=== PATIENT | female | born 1965 | race Hispanic/Latino ===

== ENCOUNTER → 2019-03-27 | Outpatient (CLI) | payer OTHER | END | disposition home or self-care (01) | LOC: RAH 11:12 | PROVIDERS: ATTEND Obstetrics & Gynecology | DX: Z12.31 Encounter for screening mammogram for malignant neoplasm of breast (principal) | CPT/HCPCS: 77067 ==

== ENCOUNTER → 2019-04-03 | Outpatient (CLI) | payer OTHER | END | disposition home or self-care (01) | LOC: RAH 09:01 | PROVIDERS: ATTEND Obstetrics & Gynecology | DX: N63.32 Unspecified lump in axillary tail of the left breast (principal); N63.31 Unspecified lump in axillary tail of the right breast; N60.02 Solitary cyst of left breast; N60.01 Solitary cyst of right breast | CPT/HCPCS: 76641 ==

== ENCOUNTER 2023-12-05 14:19 | Emergency (ER) | payer BC ==
[~2023-12-05] VITALS: Ht 152.4 cm; Wt 68.0 kg
[~2023-12-05 14:19] MED LIST: GLIP10TA9 PO; METF-526 PO
[2023-12-05 14:49] LABS: HEMATOCRIT 30.1 % (36-48); MEAN CORPUSCULAR HEMOGLOBIN 29.9 pg (27.0-33.0); MEAN CORPUSCULAR HGB CONC 33.2 g/dL (32.0-36.0); MEAN CORPUSCULAR VOLUME 90.1 fL (79-99); RED BLOOD CELL COUNT(AUTO) 3.34 MIL/uL (4.00-5.50); RED CELL DISTRIBUTION WIDTH 13.9 % (11.0-15.5); WHITE BLOOD COUNT (AUTO) 5.6 K/uL (4.8-10.8)
[2023-12-05 15:06] LABS: CREATININE 0.8 mg/dL (0.5-1.5); POTASSIUM 3.6 mmol/L (3.5-5.1)
[2023-12-05] MEDS: PANTOPRAZOLE 40 MG/VIAL IVP ONE (18:41)
[2023-12-05] MEDS: 0.9% NACL 500ML IV.SOLN 500 ML IV ONE (18:42)
[2023-12-05 19:12] LABS: MAGNESIUM 1.7 mg/dL (1.80-2.40)
[2023-12-05 20:17] LABS: APPEARANCE,URINE CLEAR (CLEAR); BILIRUBIN,URINE NEGATIVE (NEGATIVE); COLOR,URINE LIGHT-YELLOW (YELLOW); GLUCOSE, URINE (UA) 300 mg/dL (NEGATIVE); KETONES,URINE NEGATIVE (NEGATIVE); LEUKOCYTE ESTERASE ,URINE NEGATIVE Leu/uL (NEGATIVE); NITRATE,URINE NEGATIVE (NEGATIVE); OCCULT BLOOD,URINE NEGATIVE (NEGATIVE); PH,URINE 6.5 (5.0-8.0); PROTEIN,URINE NEGATIVE (NEGATIVE); UROBILINOGEN,URINE 0.2 mg/dL (0.2-1.0)
[2023-12-05 20:18] LABS: ADD UA MICROSCOPIC YES
[2023-12-05 20:20] LABS: BACTERIA,URINE RARE /HPF (None Seen); MUCUS,URINE RARE LPF (None Seen); RBC,URINE 0-1 /HPF (0-1); SQUAMOUS EPITHELIAL CELL,UR RARE /HPF (0-2); UNCLASSIFIED CRYSTAL 1 /HPF (None Seen); WBC,URINE 0-1 /HPF (0-1)
[2023-12-05] MEDS: 0.9%NACL 1000ML 1,365 ML IV ONE (20:50)
[2023-12-05] MEDS ORDERED: ONDA4TAB10 PO (23:09)
[2023-12-05] MEDS ORDERED: GLIP5TAB PO (23:25)
[2023-12-05 23:31] VITALS: BP 139/64; PULSE 76; RESP 16; O2SAT 98
== END 2023-12-05 23:38 | disposition home or self-care (01) ==
LOC: EDH 14:19
DX: E11.65 Type 2 diabetes mellitus with hyperglycemia (principal); R11.0 Nausea; E87.20 Acidosis, unspecified; I10 Essential (primary) hypertension; Z79.84 Long term (current) use of oral hypoglycemic drugs
CPT/HCPCS: 99284; 96361; 96374; 82550; 83735; 84484; 80048; 85027; 82948; 83605 ×2; 81001; 36415; 93005; J7030; C9113

== ENCOUNTER 2024-06-03 16:59 | Emergency (ER) | payer BC ==
[~2024-06-03] VITALS: Ht 152.4 cm; Wt 65.3 kg
[~2024-06-03 16:59] MED LIST changes: +GLIP5TAB PO; +ONDA-243 PO
[2024-06-03 17:20] LABS: BASOPHILS # (AUTO) 0.03 K/uL (0.00-0.20); BASOPHILS % (AUTO) 0.6 % (0.0-5.0); EOSINOPHILS # (AUTO) 0.02 K/uL (0.00-0.70); EOSINOPHILS % (AUTO) 0.4 % (0.0-8.0); HEMATOCRIT 35.9 % (36-48); IMMATURE GRANULOCYTE ABSOLUTE 0.01 K/uL (0-1); LYMPHOCYTES # (AUTO) 1.9 K/uL (1.0-4.8); LYMPHOCYTES % (AUTO) 39.6 % (21.0-51.0); MEAN CORPUSCULAR HEMOGLOBIN 32.5 pg (27.0-33.0); MEAN CORPUSCULAR HGB CONC 33.7 g/dL (32.0-36.0); MEAN CORPUSCULAR VOLUME 96.5 fL (79-99); MONOCYTES # (AUTO) 0.4 K/uL (0.1-1.0); MONOCYTES % (AUTO) 7.9 % (3.0-13.0); NEUTROPHILS # (AUTO) 2.5 K/uL (1.8-7.7); NEUTROPHILS % (AUTO) 51.3 % (40.0-77.0); PLATELET COUNT (AUTO) 102 K/uL (130-400); RED BLOOD CELL COUNT(AUTO) 3.72 MIL/uL (4.00-5.50); RED CELL DISTRIBUTION WIDTH 12.8 % (11.0-15.5); WHITE BLOOD COUNT (AUTO) 4.8 K/uL (4.8-10.8)
[2024-06-03 17:30] LABS: CREATININE 0.8 mg/dL (0.5-1.0); POTASSIUM 3.9 mmol/L (3.5-5.1)
[2024-06-03 17:31] LABS: INR 1.06 (0.85-1.15); PROTHROMBIN TIME 11.4 SEC (9.6-11.6)
[2024-06-03 17:32] LABS: PARTIAL THROMBOPLASTIN TIME 25.1 SEC (26.3-35.5)
[2024-06-03 17:55] LABS: B-TYPE NATRIURETIC PEPTIDE 16 pg/mL (0-100)
[2024-06-03] MEDS: 0.9%NACL 1000ML 1,000 ML IV ONE (18:25)
[2024-06-03 18:50] VITALS: BP 154/63; PULSE 78; RESP 20; O2SAT 99
[2024-06-03 18:50] LABS: ADD UA MICROSCOPIC YES; APPEARANCE,URINE CLEAR (CLEAR); BILIRUBIN,URINE NEGATIVE (NEGATIVE); COLOR,URINE LIGHT-YELLOW (YELLOW); GLUCOSE, URINE (UA) >=1000 mg/dL (NEGATIVE); KETONES,URINE NEGATIVE (NEGATIVE); LEUKOCYTE ESTERASE ,URINE NEGATIVE Leu/uL (NEGATIVE); NITRATE,URINE NEGATIVE (NEGATIVE); OCCULT BLOOD,URINE NEGATIVE (NEGATIVE); PROTEIN,URINE NEGATIVE (NEGATIVE); UROBILINOGEN,URINE 0.2 mg/dL (0.2-1.0)
[2024-06-03 18:51] LABS: RBC,URINE 0-1 /HPF (0-1); SQUAMOUS EPITHELIAL CELL,UR FEW /HPF (0-2)
== END 2024-06-03 19:55 | disposition admitted as inpatient to this hospital (09) ==
LOC: EDH 16:59
DX: R07.89 Other chest pain (principal); E11.65 Type 2 diabetes mellitus with hyperglycemia; I10 Essential (primary) hypertension; K74.60 Unspecified cirrhosis of liver; Z79.84 Long term (current) use of oral hypoglycemic drugs; Z79.899 Other long term (current) drug therapy
CPT/HCPCS: 99284; 71045; 82550; 84484 ×2; 80048; 83880; 85025; 85610; 85730; 81001; 36415; 93005; J7030

== ENCOUNTER 2024-06-27 11:31 | Emergency (ER) | payer BC ==
[~2024-06-27] VITALS: Ht 152.4 cm; Wt 65.3 kg
[2024-06-27 13:28] LABS: BASOPHILS # (AUTO) 0.03 K/uL (0.00-0.20); BASOPHILS % (AUTO) 0.6 % (0.0-5.0); EOSINOPHILS # (AUTO) 0.02 K/uL (0.00-0.70); EOSINOPHILS % (AUTO) 0.4 % (0.0-8.0); HEMATOCRIT 38.3 % (36-48); IMMATURE GRANULOCYTE ABSOLUTE 0.01 K/uL (0-1); LYMPHOCYTES # (AUTO) 2.1 K/uL (1.0-4.8); LYMPHOCYTES % (AUTO) 39.1 % (21.0-51.0); MEAN CORPUSCULAR HEMOGLOBIN 32.3 pg (27.0-33.0); MEAN CORPUSCULAR HGB CONC 33.9 g/dL (32.0-36.0); MONOCYTES # (AUTO) 0.4 K/uL (0.1-1.0); MONOCYTES % (AUTO) 7.6 % (3.0-13.0); NEUTROPHILS # (AUTO) 2.8 K/uL (1.8-7.7); NEUTROPHILS % (AUTO) 52.1 % (40.0-77.0); PLATELET COUNT (AUTO) 102 K/uL (130-400); RED BLOOD CELL COUNT(AUTO) 4.03 MIL/uL (4.00-5.50); WHITE BLOOD COUNT (AUTO) 5.4 K/uL (4.8-10.8)
[2024-06-27 13:34] LABS: CREATININE 0.7 mg/dL (0.5-1.0)
[2024-06-27 13:41] VITALS: BP 154/75; PULSE 81; RESP 16; TEMP 98; O2SAT 98
== END 2024-06-27 16:01 | disposition home or self-care (01) ==
LOC: EDH 11:31
DX: R00.2 Palpitations (principal); T45.2X5A Adverse effect of vitamins, initial encounter; E11.65 Type 2 diabetes mellitus with hyperglycemia; E87.1 Hypo-osmolality and hyponatremia; K74.60 Unspecified cirrhosis of liver; Z79.84 Long term (current) use of oral hypoglycemic drugs; Z79.899 Other long term (current) drug therapy; Y92.89 Other specified places as the place of occurrence of the external cause
CPT/HCPCS: 36415; 80048; 84484; 85025; 93005

== ENCOUNTER 2025-01-25 14:16 | Emergency (ER) | payer BC ==
[~2025-01-25] VITALS: Ht 152.4 cm; Wt 70.3 kg
[~2025-01-25 14:16] MED LIST changes: +GLIP10TA16 PO; -GLIP10TA9 PO
--- NOTE | 2025-01-25 14:31 | EKG ---
[facility] Test Date: 2025-01-25 Test Time: 14:22:24 Pat Name: JESSICA PARRA Department: ED Room: Gender: F Engineering Specialist: [id number] : 1965 Requested By: DONY FLOWERS Order Number: [id number] Reading MD: Analia Olguin Measurements Intervals [place] Rate: 88 P: 52 ID: [id number] QRS: -9 QRSD: 78 T: 86 QT: 400 QTc: 484 Interpretive Statements Sinus rhythm Compared to ECG 06/27/2024 11:47:38 T-wave abnormality no longer present Electronically Signed On 01-26-2025 09:33:49 CDT by Analia Olguin Please click the below link to view image of tracing.
[2025-01-25 15:12] LABS: BASOPHILS # (AUTO) 0.03 K/uL (0.00-0.20); BASOPHILS % (AUTO) 0.7 % (0.0-5.0); EOSINOPHILS # (AUTO) 0.02 K/uL (0.00-0.70); EOSINOPHILS % (AUTO) 0.5 % (0.0-8.0); HEMATOCRIT 38.1 % (36-48); IMMATURE GRANULOCYTE ABSOLUTE 0.01 K/uL (0-1); LYMPHOCYTES # (AUTO) 1.6 K/uL (1.0-4.8); LYMPHOCYTES % (AUTO) 36.4 % (21.0-51.0); MEAN CORPUSCULAR HEMOGLOBIN 32.9 pg (27.0-33.0); MEAN CORPUSCULAR HGB CONC 33.9 g/dL (32.0-36.0); MEAN CORPUSCULAR VOLUME 97.2 fL (79-99); MONOCYTES # (AUTO) 0.3 K/uL (0.1-1.0); NEUTROPHILS # (AUTO) 2.4 K/uL (1.8-7.7); NEUTROPHILS % (AUTO) 55.2 % (40.0-77.0); PLATELET COUNT (AUTO) 90 K/uL (130-400); RED BLOOD CELL COUNT(AUTO) 3.92 MIL/uL (4.00-5.50); RED CELL DISTRIBUTION WIDTH 13.2 % (11.0-15.5); WHITE BLOOD COUNT (AUTO) 4.4 K/uL (4.8-10.8)
[2025-01-25] MEDS: ASPIRIN 81MG CHEW TAB PO STA (15:22)
[2025-01-25 15:24] LABS: CREATININE 0.7 mg/dL (0.5-1.0)
[2025-01-25 15:33] LABS: B-TYPE NATRIURETIC PEPTIDE 15 pg/mL (0-100)
[2025-01-25 15:36] LABS: APPEARANCE,URINE CLEAR (CLEAR); BILIRUBIN,URINE NEGATIVE (NEGATIVE); COLOR,URINE LIGHT-YELLOW (YELLOW); GLUCOSE, URINE (UA) >=1000 mg/dL (NEGATIVE); KETONES,URINE NEGATIVE (NEGATIVE); LEUKOCYTE ESTERASE ,URINE NEGATIVE Leu/uL (NEGATIVE); NITRATE,URINE NEGATIVE (NEGATIVE); OCCULT BLOOD,URINE NEGATIVE (NEGATIVE); PROTEIN,URINE NEGATIVE (NEGATIVE); UROBILINOGEN,URINE 0.2 mg/dL (0.2-1.0)
--- NOTE | 2025-01-25 15:41 | HMCIMG ---
CHEST 1VW HISTORY: Chest pain COMPARISON: 06/03/2004 FINDINGS: A frontal projection of the chest was obtained. No acute pulmonary infiltrates is seen. The heart is borderline enlarged. Degenerative changes are seen. No evidence of aortic calcification is seen. IMPRESSION: 1. No acute pulmonary infiltrate is seen.
[2025-01-25 15:42] LABS: ADD UA MICROSCOPIC NO
[2025-01-25] MEDS: INSULIN humuLIN R 100 UNIT/ML 3ML IV STA (16:00)
[2025-01-25] MEDS: 0.9%NACL 1000ML 1,000 ML IV STA (16:00)
--- NOTE | 2025-01-25 16:46 | ERN ---
ED Note History of Present Illness Stated Complaint: SENT BY Chief Complaint: Chest Pain Time Seen by MD: 14:17 Time Seen by Midlevel: 14:20 Dictation: 59 year old female with a history of hypertension and diabetes coming in with complaints of chest pain onset this morning along with shortness a breath and bilateral lower leg swelling intermittently. Patient states the bilateral lower leg swelling has been going on for one week. Today she went to her doctor for vitamin-B injection and was told to come here because she told him about the chest pain. Allergies: Coded Allergies: No Known Drug Allergies (Unverified Allergy, Unknown, 10/29/23) Home Meds Active Scripts Glipizide (Glucotrol Xl) 5 Mg Tab.er.24, 5 MG PO DAILY, #30 TAB 0 Refills Prov:EZE VERONICA NP 12/05/23 Ondansetron (Ondansetron Odt) 4 Mg Tab.rapdis, 4 MG PO Q6HPRN PRN for nausea, #15 TAB 0 Refills Prov:EZE VERONICA NP 12/05/23 Reported Medications Glipizide (Glipizide) 10 Mg Tablet, 10 MG PO BID, TAB 10/30/23 Metformin HCl (Metformin HCl ER) 500 Mg Tab.er.24, 1000 MG PO BID 10/30/23 Past Medical History Past Medical History: Diabetes-Type II Additional Past Medical Hx: CIRRHOSIS Surgical History: None Social History: Negative History: Not Applicable Review of System Dictation Constitutional: Negative for fever,chills, and weight loss Eyes: Negative for injury, pain,redness, and discharge ENT: Negative for injury,pain or swelling Cardiovascular: Negative for chest pain, palpitations, and edema Respiratory: Complaining of shortness a breath, cough, and wheezing, Abdomen/GI: Negative for abdominal pain, nausea, vomiting, diarrhea, and constipation Back: Negative for injury and pain : Negative for injury, bleeding and discharge MS/Extremity: Negative for injury and deformity Skin: Negative for rash, and discoloration Neuro: Negative for headache, weakness, numbness, tingling, and seizure Psych: Negative for suicide ideation, homicidal ideation, and hallucinations Review of Systems: was completed Initial Vital Sign VS Vital Signs Date Time Temp Pulse Resp B/P (MAP) Pulse Ox O2 Delivery O2 Flow Rate FiO2 01/25/25 14:20 98.1 90 16 180/75 98 Room Air 01/25/25 16:14 0 21 Physical Exam Dictation General: awake, alert, NAD Head/Face: Normocephalic, atraumatic Eyes: PERRL, EOMI, vision at baseline ENT: oral cavity clear, TMs clear, no signs of infection Neck: Trachea midline, supple, no nuchal rigidity Cardiovascular: RRR, normal S1/S2, No MRGs, no JVD Respiratory: CTAB, no respiratory distress, No rales or wheezes Abdomen: Soft, non-tender, non-distended, normal bowel sounds, no guarding or rebound. Skin: Warm, dry, normal turgor, no rash MS/Extremity: Pulses equal, no cyanosis, neurovascular intact, FROM Neuro: COAx4, GCS 15, strength 5/5, CN 2-12 intact, normal cerebellar exam, normal gait, Psych: Normal behavior, mood, and affect normal Results (Laboratory/Radiology) Laboratory/Radiology Laboratory Tests Test 01/25/25 15:00 01/25/25 16:51 01/25/25 17:21 White Blood Count 4.4 K/uL (4.8-10.8) L Red Blood Count 3.92 MIL/uL (4.00-5.50) L Hemoglobin 12.9 g/dL (12.0-16.0) Hematocrit 38.1 % (36-48) Mean Corpuscular Volume 97.2 fL (79-99) Mean Corpuscular Hemoglobin 32.9 pg (27.0-33.0) Mean Corpuscular Hemoglobin Concent 33.9 g/dL (32.0-36.0) Red Cell Distribution Width 13.2 % (11.0-15.5) Platelet Count 90 K/uL (130-400) L Mean Platelet Volume 10.3 fL (7.5-10.5) Immature Granulocyte % (Auto) 0.2 % (0-1) Neutrophils (%) (Auto) 55.2 % (40.0-77.0) Lymphocytes (%) (Auto) 36.4 % (21.0-51.0) Monocytes (%) (Auto) 7.0 % (3.0-13.0) Eosinophils (%) (Auto) 0.5 % (0.0-8.0) Basophils (%) (Auto) 0.7 % (0.0-5.0) Neutrophils # (Auto) 2.4 K/uL (1.8-7.7) Lymphocytes # (Auto) 1.6 K/uL (1.0-4.8) Monocytes # (Auto) 0.3 K/uL (0.1-1.0) Eosinophils # (Auto) 0.02 K/uL (0.00-0.70) Basophils # (Auto) 0.03 K/uL (0.00-0.20) Absolute Immature Granulocyte (auto 0.01 K/uL (0-1) Nucleated Red Blood Cells 0.0 % (0.0-0.19) Urine Color LIGHT-YELLOW (YELLOW) Urine Appearance CLEAR (CLEAR) Urine pH 7.0 (5.0-8.0) Urine Specific [place] 1.025 (1.001-1.031) Urine Protein NEGATIVE mg/dL (NEGATIVE) Urine Glucose (UA) >=1000 mg/dL (NEGATIVE) H Urine Ketones NEGATIVE mg/dL (NEGATIVE) Urine Occult Blood NEGATIVE (NEGATIVE) Urine Nitrate NEGATIVE (NEGATIVE) Urine Bilirubin NEGATIVE mg/dL (NEGATIVE) Urine Urobilinogen 0.2 mg/dL (0.2-1.0) Urine Leukocyte Esterase NEGATIVE [place]/uL Sodium Level 135 mmol/L (136-145) L Potassium Level 4.0 mmol/L (3.5-5.1) Chloride Level 102 mmol/L (101-111) Carbon Dioxide Level 27 mmol/L (21-32) Blood Urea Nitrogen 11 mg/dL (7-18) Creatinine 0.7 mg/dL (0.5-1.0) Glomerular Filtration Rate Calc 100 mL/min (>90) Random Glucose 399 mg/dL (70-105) H Total Calcium 8.5 mg/dL (8.5-10.1) Total Creatine Kinase 78 U/L (21-232) Troponin I High Sensitivity 8 ng/L (4-50) 6 ng/L (4-50) B-Type Natriuretic Peptide 15 pg/mL (0-100) Total Bilirubin 0.6 mg/dL (0.2-1.0) Direct Bilirubin 0.2 mg/dL (0.0-0.3) Aspartate Amino Transf (AST/SGOT) 80 U/L (10-37) H Alanine Aminotransferase (ALT/SGPT) 90 U/L (12-78) H Alkaline Phosphatase 263 U/L (50-136) H Total Protein 7.7 g/dL (6.0-8.3) Albumin 2.7 g/dL (3.5-5.0) L Whole Blood Glucose 260 MG/DL (70-110) H Labs Reviewed?: Yes EKG Comment: EKGs done at 2:22 p.m., sinus rhythm at a rate of 88. No STEMI interpreted by ER MD. ED Course ED Course Orders Procedure Category Date Status Time Vital Signs Per CPOE 01/25/25 Transmitted Routine 14:22 B-Type Natriuretic LAB 01/25/25 Complete Peptide 14:22 Chest 1vw RAD 01/25/25 Resulted 14:22 12 Lead Ekg Tracing- EKG 01/25/25 Complete Technical 14:22 Oxygen By Nc/Pulse Ox CPOE 01/25/25 Transmitted 14:22 Maintain Iv CPOE 01/25/25 Transmitted 14:22 Iv Insertion CPOE 01/25/25 Transmitted 14:22 Cardiac Monitoring CPOE 01/25/25 Transmitted 14:22 Pulse Oximetry With CPOE 01/25/25 Transmitted Vs And Prn 14:22 Cbc With Differential LAB 01/25/25 Complete 14:22 Activity: Br W/Brp CPOE 01/25/25 Transmitted With Assist 14:22 Creatine Kinase, Total LAB 01/25/25 Complete 14:22 Troponin I High LAB 01/25/25 Complete Sensitivity 14:22 Urinalysis Profile LAB 01/25/25 Complete 14:22 Basic Metabolic Panel LAB 01/25/25 Complete 14:22 Aspirin 81mg Chew Tab PHA 01/25/25 Complete (Aspirin 81mg Chew 14:38 0.9%Nacl 1000ml (Ns PHA 01/25/25 Complete 1000ml) 15:42 Insulin Regular, PHA 01/25/25 Complete Human 3ml (Humulin R 15:42 Troponin I High LAB 01/25/25 Complete Sensitivity 16:41 Bedside Glucose CPOE 01/25/25 Transmitted Fingerstick 16:41 Hepatic Function Panel LAB 01/25/25 Complete 17:25 Current Medications Medications (Trade) Dose Ordered Sig/Steff Route PRN Reason Start Time Stop Time Status Last Admin Dose Admin Aspirin (Aspirin 81mg Chew Tab) 324 mg ONCE STAT PO 01/25/25 14:38 01/25/25 14:45 DC 01/25/25 15:22 Insulin Human Regular (humuLIN R 100 UNIT/ML 3ML) 5 unit ONCE STAT IV 01/25/25 15:42 01/25/25 15:47 DC Sodium Chloride 1,000 ml @ 500 mls/hr Q2H STAT IV 01/25/25 15:42 01/25/25 17:41 DC Vital Signs Date Time Temp Pulse Resp B/P (MAP) Pulse Ox O2 Delivery O2 Flow Rate FiO2 01/25/25 16:14 82 18 156/62 99 Room Air* 0 21 01/25/25 14:20 98.1 90 16 180/75 98 Room Air Medical Decision Making MDM MDM: 59 year old female with a history of hypertension and diabetes coming in with complaints of chest pain onset this morning along with shortness a breath and bilateral lower leg swelling intermittently. Patient states the bilateral lower leg swelling has been going on for one week. Today she went to her doctor for vitamin-B injection and was told to come here because she told him about the chest pain. Patient also states she just finished her treatment for H pylori last week. Blood work unremarkable other than hyperglycemia at 399. Gave fluids and insulin, repolarization 260. Patient states she feels much better after fluids and medication. Patient is requesting to take her liver due to recently being on H pylori medications and her history of liver cirrhosis. Liver enzymes are mildly elevated however in comparison to previous visits seems to be within the normal for her. Discussed with the patient to follow up with PCP in 1-2 days and return to the hospital as needed. Patient verbalized understanding, answered all questions. Also patient stated she rather not be admitted if she did need to because it is Easter weekend. Differential diagnosis: Fluid overload, ACS, Rationale: Tests considered and ordered secondary to shared decision making include: Previous outside records reviewed: Old ER visits. Risk of complication and/or morbidity or mortality of patient management: None Medications-Per medication reconciliation Need for hospitalization: Patient does not meet criteria for hospitalization. Need for emergency major/minor surgery: No There are no social concerns with this patient. Prescription drug management Prescriptions will include symptomatic care Patient's prior external medical records from other ER visits were reviewed by me as indicated. Prior testing and results from previous visits were reviewed. Prior tests were taken into account with medical decision making and resource utilization, independent historian/historians were used to obtain complete medical history. I independently interpreted the test that were performed, results were reviewed by me and considered findings on radiology if ordered. Medical management and examination interpretation discussions were had by me with other qualified healthcare professionals as indicated for the patient's care. DX & DISP Disposition: Discharge Departure Impression: Primary Impression: Non-cardiac chest pain Additional Impression: Type 2 diabetes mellitus with hyperglycemia Condition: Stable Additional Instructions: Please follow up with PCP. Return to the hospital if you have any worsening symptoms. Take your home medication as prescribed. Elevate your legs when possible to help with swelling. Referrals: CHRISTINE LEARY MD (PCP) Time of Disposition: 17:56 I have reviewed the case, and I agree with, Diagnosis and Plan ARSENIO MANDEL NP Jan 25, 2025 16:46
[2025-01-25 17:47] LABS: ALBUMIN 2.7 g/dL (3.5-5.0); BILIRUBIN,DIRECT 0.2 mg/dL (0.0-0.3); BILIRUBIN,TOTAL 0.6 mg/dL (0.2-1.0); TOTAL PROTEIN, SERUM 7.7 g/dL (6.0-8.3)
[2025-01-25 18:55] VITALS: BP 144/60; PULSE 88; RESP 18; TEMP 98; O2SAT 98
== END 2025-01-25 18:50 | disposition home or self-care (01) ==
LOC: EDH 14:16
DX: R07.89 Other chest pain (principal); E11.65 Type 2 diabetes mellitus with hyperglycemia; Z79.84 Long term (current) use of oral hypoglycemic drugs
CPT/HCPCS: 99284; 96374; 71045; 96361; 82550; 80076; 84484 ×2; 80048; 83880; 85025; 82948; 81003; 36415; 93005; J1815; J7030

== ENCOUNTER 2025-06-30 16:19 | Emergency (ER) | payer BC ==
[~2025-06-30] VITALS: Ht 152.4 cm; Wt 70.3 kg
--- NOTE | 2025-06-30 17:22 | HMCIMG ---
EXAM: CR left Humerus, 2 View. CLINICAL HISTORY: pain COMPARISON: None provided. FINDINGS: BONES: No acute fracture or aggressive appearing osseous lesion. JOINTS: No dislocation. The joint spaces are normal. SOFT TISSUES: The soft tissues are unremarkable. IMPRESSION: No acute osseous abnormality. /[place]
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
[2025-06-30 17:58] VITALS: BP 157/76; PULSE 87; RESP 18; TEMP 98.2; O2SAT 95
== END 2025-06-30 17:59 | disposition home or self-care (01) ==
LOC: EDH 16:19
DX: S40.022A Contusion of left upper arm, initial encounter (principal); E11.9 Type 2 diabetes mellitus without complications; Z79.84 Long term (current) use of oral hypoglycemic drugs; Z79.899 Other long term (current) drug therapy; X58.XXXA Exposure to other specified factors, initial encounter; Y93.89 Activity, other specified; Y92.89 Other specified places as the place of occurrence of the external cause; Y99.8 Other external cause status
CPT/HCPCS: 99284; 73060; 96372; J1885